=== PATIENT | female | born 1945 | race Caucasian/White ===

== ENCOUNTER → 2016-09-09 | Outpatient (CLI) | payer OTHER, BC | LOC: RAD 12:35 | DX: R06.02 Shortness of breath (principal) ==

== ENCOUNTER → 2016-09-18 | Outpatient (CLI) | payer OTHER, BC ==
--- NOTE | ~2016-09-18 | MCT ---
[facility] [place] [address] [employer] TEST Name: CARMELO WARD [id number] Admission: 09/18/16 Attend Phys: Khushboo Cottrell MD Discharge: Date of : 49 Report #: [id number] THIS REPORT FOR: //name// COPIES FOR: AGE: 71 SEX/RACE: F/C Height: 65 in Exam Date: 09/18/16 Weight: 145 lbs BTPS: X >> PRE BRONCHODILATOR: PREDICTED BEST %PRED FORCED VITAL CAPACITY (FRC) 3.04 L LPM % FORCED EXP VOL/SEC (FEV1) L FEV/FVC % MAX MID-EXP FLOW (FEF 25-75) L/SEC L/SEC % PEAK EXP FLOW RATE (FEF MAX) L/MIN L/MIN MED-VC RATIO (FEF 50/FEF 50) .09 Baseline: Phenol Saline Level 1: 0.025 mg/ml BEST %PRED %CHANGE BEST %PRED %CHANGE FVC 2.89 L 97 % -5 % FVC 3.06 L 103 % 6 % FEV1 1.90 L 81 % -11 % FEV1 2.00 L 85 % 6 % Level 2: 0.25 mg/ml Level 3: 2.5 mg/ml BEST %PRED %CHANGE BEST %PRED %CHANGE FVC 2.98 L 101 % 3 % FVC 2.43 L 82 % -16 % FEV1 1.97 L 84 % 4 % FEV1 1.43 L 61 % -25 % . Level 4: 10 mg/ml Level 5: 25 mg/ml BEST %PRED %CHANGE BEST %PRED %CHANGE FVC L % % FVC L % % FEV1 L % % FEV1 L % % Post Bronchodilator: 1st Treatment Post Bronchodilator: 2nd Treatment BEST %PRED %CHANGE BEST %PRED %CHANGE FVC 3.07 L 103 % 6 % FVC L % % FEV1 2.02 L 86 % 7 % FEV1 L % % Post Bronchodilator: 3rd Treatment BEST %PRED %CHANGE [facility] [address] [place] [address] [employer] CH[employer] TEST Name: CARMELO WARD Room #: REG [facility]#: [id number] Admission: 09/18/16 Attend Phys: Khushboo Cottrell MD Discharge: Date of : 49 Report #: [id number] FVC L % % FEV1 L % % >> INTERPRETATION: CC: Khushboo EMMANUEL physician/PCP DATE OF SERVICE: 09/18/2016 Broncho challenge test positive on fourth study with improvement back to baseline. <ELECTRONICALLY SIGNED> By: Khushboo Cottrell MD 10/01/16 2224 Khushboo Cottrell MD /nt
== END ==
LOC: PUL 11:11
DX: R05 Cough (principal)